=== PATIENT | male | born 1955 | race Caucasian/White ===

== ENCOUNTER 2018-08-19 01:04 | Emergency (ER) | payer SELFPAY ==
[~2018-08-19] VITALS: Ht 175.3 cm; Wt 68.2 kg
[2018-08-19 01:08] VITALS: BP 141/80; TEMP 99.1
[2018-08-19] MEDS ORDERED: ULTRAM 50MG TAB50 MG PO (01:55)
[2018-08-19 02:08] VITALS: PULSE 83
== END 2018-08-19 02:08 | disposition home or self-care (01) ==
LOC: COL.ER 01:04
DX: H16.8 Other keratitis (principal); F17.210 Nicotine dependence, cigarettes, uncomplicated

== ENCOUNTER 2018-09-18 22:45 | Emergency (ER) | payer SELFPAY ==
[~2018-09-18] VITALS: Ht 175.3 cm; Wt 68.2 kg
[~2018-09-18 22:45] MED LIST: ULTRAM 50MG TAB50 MG PO
[2018-09-18 22:55] VITALS: TEMP 98.5
[2018-09-19] MEDS ORDERED: PERCOCET 325 MG1 TA2 PO (00:28)
[2018-09-19 00:41] VITALS: BP 140/86; PULSE 80
== END 2018-09-19 00:35 | disposition home or self-care (01) ==
LOC: COL.ER 22:45
DX: H16.133 Photokeratitis, bilateral (principal); F17.210 Nicotine dependence, cigarettes, uncomplicated